=== PATIENT | female | born 2000 | race Two or more races ===

== ENCOUNTER 2024-06-06 18:42 | Observation (INO) | payer MEDICAID, SELFPAY ==
[2024-06-06] VITALS (32 sets, daily range): BP systolic 111–143; BP diastolic 55–74; PULSE 83–105; RESP 18; TEMP 36.8–36.9; O2SAT 98–99; BMI 49.6
[2024-06-06] MEDS: TERBUTALINE SULF INJ 1 MG/ML VIAL 0.25 MG SC (20:31)
[2024-06-06] MEDS: RINGERS LACTATED 1000 ML 1,000 ML 999 ML IV (20:41)
[2024-06-06 21:15] LABS: Collection Type, Urine Clean Catch; RBC,Urine 0 /hpf (0-3); WBC,Urine 0 /hpf (0-5)
[2024-06-06 21:19] LABS: Basophils % (Auto) 0 % (0-2.5); Eosinophils % (Auto) 0 % (0-10); Hematocrit 32.4 % (36.0-46.0); Hemoglobin 10.7 g/dL (12.0-16.0); Immature Granulocytes % (Auto) 1 % (0-0); Lymphocytes # (Auto) 3.2 Thou/mm3 (1.0-4.8); Lymphocytes % (Auto) 26 % (10-50); Mean Corpuscular Volume 82 fL (80-100); Monocytes % (Auto) 8 % (0-12); Neutrophils % (Auto) 65 % (37-80); Nucleated Red Blood Cell % 0 /100 WBC (0); Platelet Count 364 Thou/mm3 (140-440); RDW Standard Deviation 41.9 fL (36.4-46.3); Red Blood Count 3.97 Miln/mm3 (4.00-5.20); White Blood Count 12.3 Thou/mm3 (3.6-11.0)
[2024-06-06 21:34] LABS: Bilirubin,Urine Negative (Negative); Blood,Urine Negative (Negative); Clarity,Urine Clear (Clear/Hazy); Color,Urine Yellow (Lt Yel-Yel); Glucose, Urine Negative (Negative); Ketones,Urine 3+ (Negative); Leukocyte Esterase,Urine Negative (Negative); Nitrite,Urine Negative (Negative); PH,Urine 6.5 (5.0-7.0); Protein,Urine Trace (Neg - Trace); Specific Gravity,Urine 1.018 (1.001-1.035); Squamous Epithelial Cell,Urine 1 /hpf (0-5); Urobilinogen,Urine Negative mg/dL (0.0-1.0)
[2024-06-06] MEDS: RINGERS LACTATED 1000 ML 1,000 ML 100 ML IV (21:45)
[2024-06-06] MEDS: NIFEdipine 10 MG CAPSULE PO (21:52)
[2024-06-06 22:51] LABS: Syphilis Nonreactive (Nonreactive)
[2024-06-07 06:00] VITALS: TEMP 37
[2024-06-07 06:09] VITALS: BP 130/68; PULSE 85
--- NOTE | 2024-06-07 07:09 | ESHP_ITS ---
Documentation for date of: 06/07/24 OB Labor/Induct. HPI History of Present Illness : 2 Term pregnancies: 1 pregnancies: 0 Living children: 0 History of Abortions: Spontaneous and Elective: 0 History of sections: Yes History of : No History of present illness: 24 yo at 35+3 presents with back pain and contractions. c/b: 1) History of CD at 37 weeks 2) GDM 3) Obesity BMI 50 4) Asthma 5) Anemia in Patient states she started having back pain at 10AM and reports having intercourse. Since then still having back pain (lower middle location) and cramping contractions. No LOF, no VB. Normal movement. No incisional pain and no dysuria. History of Present Adequate Care: Yes Review of Systems Review of Systems Narrative Review of Systems: NEgative except noted above Past Medical History Surgical History SURGICAL: Positive Section Meds Home Medications and Allergies Home Medications ?Medication ?Instructions ?Recorded ?Confirmed ?Type vit no.95-ferrous 06/06/24 06/06/24 History fumarate 28 mg-folic acid 800 mcg tablet () Allergies Allergy/AdvReac Type Severity Reaction Status Date / Time No Known Allergies Allergy Verified 04/30/23 08:55 OB Exam Physical Exam Vital signs: Temp Pulse Resp BP Pulse Ox 98.6 F 85 18 130/68 98 06/07/24 06:00 06/07/24 06:09 06/06/24 19:02 06/07/24 06:09 06/06/24 20:51 Narrative: General: NAD RESP: normal work of breathing Abdomen: soft, gravid, non-tender, no rebound or guarding, no incisional pain. Small amount of pain over left ASIS with palpation BACK : no CVA tenderness, mild pain with palpation in mid lower back Extremities: no pain with palpation of calves and no unilateral swelling SVE: unchanged 1cm over serial exams FHT: Moderate variability, normal baseline, variable decel x1 over the course of observation period. With prolonged monitoring, no additional decelerations [place]: irritable q-1-2min -> prolonged monitoring s/p terb/nifedipine and IVF -> irregular/quiet OB Results Labs 06/06/24 20:41 Labs: Short CBC 06/06/24 Range/Units 20:41 WBC 12.3 H (3.6-11.0) Thou/mm3 Hgb 10.7 L (12.0-16.0) g/dL Hct 32.4 L (36.0-46.0) % Plt Count 364 (140-440) Thou/mm3 Urine 06/06/24 Range/Units 21:00 Urine Color Yellow (Lt Yel-Yel) Urine Clarity Clear (Clear/Hazy) Urine pH 6.5 (5.0-7.0) Ur Specific [place] 1.018 (1.001-1.035) Urine Protein Trace (Neg - Trace) Urine Glucose (UA) Negative (Negative) Impressions Impression: 24 yo at 35+3 presents with back pain and contractions, admitted for observation in the setting of prior section. After conservative management with IVF, her contractions improved with no change on serial SVE and no signs of uterine rupture on exam or clinical findings and FHT. Patient discharged home in stable condition with follow-up with OBGYN tomorrow. OB Assessment & Plan Assessment and Plan (1) Type 2 diabetes mellitus with insulin therapy: Status: Acute (2) contractions: Status: Acute (3) History of delivery: Status: Acute (4) Obesity: Status: Acute (5) Asthma: Status: Acute (6) Anemia in preg-unspec: Status: Acute Additional Plan Additional Plan Comment: 24 yo at 35+3 presents with back pain and contractions, not in labor. contractions, no signs of labor or uterine rupture - admitted to obs, s/p IVF, terbutatline and nifedipine with improvement of contractions, still having mild cramping. Exam reassuring with no signs of uterine rupture on exam, FHT reactive. No ALPS for GDM vs T2DM - Discussed strict return precautions, will need to follow-up with primary OBGYN for timing of RLTCS in the setting of obesity, DM, prior CD, and contractions - UA without signs of UTI, no sign of pyelonephritis on exam Elevated BP x1 on admission: - no prolonged elevated blood pressures, trace protein on UA - if she continues to have elevated BP in clinic, would recommend workup for PEC, no signs or symptoms on admission Discharged home after observation overnight for labor, no signs of labor on monitoring and serial exams. PTL precautions reviewed PEC precautions reviewed OBGYN clinic appointment tomorrow, patient aware of importance of keeping appointment.
[2024-06-07 07:39] VITALS: BP 143/81; PULSE 84; RESP 18; TEMP 36.8
[2024-06-07 09:14] LABS: Basophils % (Auto) 0 % (0-2.5); Eosinophils % (Auto) 0 % (0-10); Hematocrit 31.1 % (36.0-46.0); Hemoglobin 10.2 g/dL (12.0-16.0); Immature Granulocytes % (Auto) 1 % (0-0); Immature Granulocytes Auto 0.09 Thou/mm3 (0.00-0.00); Lymphocytes # (Auto) 2.5 Thou/mm3 (1.0-4.8); Lymphocytes % (Auto) 24 % (10-50); Mean Corpuscular HGB Conc 32.8 g/dl (31.0-37.0); Mean Corpuscular Volume 82 fL (80-100); Monocytes # (Auto) 0.7 Thou/mm3 (0.0-0.8); Monocytes % (Auto) 7 % (0-12); Neutrophils # (Auto) 6.8 Thou/mm3 (1.8-7.7); Neutrophils % (Auto) 67 % (37-80); Nucleated Red Blood Cell % 0 /100 WBC (0); Platelet Count 326 Thou/mm3 (140-440); RDW Standard Deviation 42.8 fL (36.4-46.3); Red Blood Count 3.78 Miln/mm3 (4.00-5.20); White Blood Count 10.1 Thou/mm3 (3.6-11.0)
[2024-06-07 09:34] LABS: Alanine Aminotransferase 20 U/L (10-49); Albumin, Serum 3.9 gm/dL (3.5-5.0); Albumin/Globulin Ratio 1.5 (1.2-2.2); Alkaline Phosphatase 116 U/L (46-116); Anion Gap 12 (7-16); Aspartate Amino Transferase 16 U/L (0-34); BUN/Creatinine Ratio 10 Ratio (12-20); Bilirubin,Total 0.8 mg/dL (0.3-1.2); Blood Urea Nitrogen 5 mg/dL (9-23); Calcium 9.3 mg/dL (8.3-10.6); Calcium (Corrected) 9.4 mg/dL (8.5-10.1); Carbon Dioxide 20.4 mMol/L (20.0-31.0); Chloride 105 mMol/L (98-107); Creatinine (Component) 0.5 mg/dL (0.6-1.3); Estimated Creatinine Clearance 210.9 mL/min (>60); Globulin 2.6 gm/dL (2.3-3.5); Glucose 81 mg/dL (74-106); Osmolality,Calculated 270 (275-295); Potassium 3.8 mMol/L (3.4-5.1); Sodium 137 mMol/L (136-145); Total Protein 6.5 gm/dL (5.7-8.2); Uric Acid 6.4 mg/dL (3.1-7.8); eGFR > 60 See Note
[2024-06-07 09:55] LABS: Collection Type, Urine Clean Catch
[2024-06-07 10:02] LABS: Bilirubin,Urine Negative (Negative); Blood,Urine Negative (Negative); Clarity,Urine Clear (Clear/Hazy); Color,Urine Yellow (Lt Yel-Yel); Glucose, Urine Negative (Negative); Ketones,Urine 4+ (Negative); Leukocyte Esterase,Urine Negative (Negative); Nitrite,Urine Negative (Negative); PH,Urine 6.5 (5.0-7.0); Protein,Urine Negative (Neg - Trace); RBC,Urine 3 /hpf (0-3); Specific Gravity,Urine 1.017 (1.001-1.035); Squamous Epithelial Cell,Urine 5 /hpf (0-5); WBC,Urine 1 /hpf (0-5)
[2024-06-07 10:12] LABS: Creatinine,Random Urine 79 mg/dL (30-125); Protein Total, Random Urine 26 mg/dL (1-14)
[2024-06-07 10:32] VITALS: BP 123/65; PULSE 90; RESP 18; TEMP 36.8
--- NOTE | 2024-06-07 11:09 | PC.NURSE ---
Patient discharged home independently, vitals wnl. Provider notified of lab results. Patient given discharge education including labor precautions, preparing for c/s, kick counts and preeclampsia symptoms. Patient instructed to follow up with provider at next scheduled appt tomorrow on 06/08 and notified of scheduled c/s on 06/17. Patient verbalizes understanding, all questions answered and encouraged.
== END 2024-06-07 11:05 | disposition home or self-care (01) ==
PROVIDERS: Admitting Provider Obstetrics & Gynecology; PCP Family Medicine; Visit Provider Obstetrics & Gynecology
DX: O47.03 False labor before 37 completed weeks of gestation, third trimester (principal); O24.414 Gestational diabetes mellitus in pregnancy, insulin controlled; O99.213 Obesity complicating pregnancy, third trimester; E66.9 Obesity, unspecified; O99.513 Diseases of the respiratory system complicating pregnancy, third trimester; J45.909 Unspecified asthma, uncomplicated; O99.013 Anemia complicating pregnancy, third trimester; D64.9 Anemia, unspecified; O26.893 Other specified pregnancy related conditions, third trimester; M54.50 Low back pain, unspecified; Z3A.35 35 weeks gestation of pregnancy
CPT/HCPCS: 36415; 59899; 80053; 81001; 82570; 84156; 84550; 85025; 86780; 86850; 86900; 86901; 87086; 96372; J3105; J7120; A9270

== ENCOUNTER 2024-06-10 10:37 | Outpatient (CLI) | payer MEDICAID, SELFPAY ==
[2024-06-10 10:40] VITALS: BP 124/60; PULSE 97; RESP 16; TEMP 36.8
[2024-06-10 11:07] VITALS: BP 124/60; PULSE 97
[2024-06-10 11:11] VITALS: BMI 49.7
[2024-06-10 11:22] VITALS: BP 126/58; PULSE 88
== END 2024-06-10 13:14 | disposition home or self-care (01) ==
LOC: S4S1 10:38 → S4SX 10:38
PROVIDERS: Referring Provider Obstetrics & Gynecology; Visit Provider Obstetrics & Gynecology
DX: O26.893 Other specified pregnancy related conditions, third trimester (principal); R03.0 Elevated blood-pressure reading, without diagnosis of hypertension; Z3A.36 36 weeks gestation of pregnancy
CPT/HCPCS: 59025

== ENCOUNTER 2024-06-14 11:23 | Outpatient (CLI) | payer MEDICAID, SELFPAY ==
[2024-06-14 11:25] VITALS: BP 136/70; PULSE 88; RESP 18; RESP 99; TEMP 36.7
[2024-06-14 11:32] VITALS: BP 136/70; PULSE 88
[2024-06-14 12:12] VITALS: BMI 49.8
--- NOTE | 2024-06-14 13:01 | XR_ITS ---
Examination: Biophysical profile, ultrasound Date and time of exam: June 14, 2024 1333 hours INDICATIONS: Indeterminate NST today, history tachycardia Technique: Multiple transabdominal sonographic images of the pelvis abdomen obtained. Attention is directed to the breathing movement, gross body movement, amniotic fluid volume and tone. Findings: Amniotic fluid index 9.6 cm Total biophysical profile is 8 of 8. breathing movement is 2. Gross body movement is 2. tone is 2. Qualitative amniotic fluid volume is 2 Impression: Biophysical profile is 8 of 8.
== END 2024-06-14 14:50 | disposition home or self-care (01) ==
LOC: S4S1 11:24 → S4SX 11:24
PROVIDERS: Referring Provider Obstetrics & Gynecology; Visit Provider Obstetrics & Gynecology
DX: Z34.83 Encounter for supervision of other normal pregnancy, third trimester (principal); Z36.9 Encounter for antenatal screening, unspecified; Z3A.36 36 weeks gestation of pregnancy
CPT/HCPCS: 59025; 76819

== ENCOUNTER 2024-06-17 10:11 | Inpatient (IN) | payer MEDICAID, SELFPAY ==
[2024-06-17] VITALS (22 sets, daily range): BP systolic 105–137; BP diastolic 60–83; PULSE 60–96; RESP 13–24; TEMP 36.3–36.7; O2SAT 97–100; BMI 54.9
[2024-06-17] MEDS: RINGERS LACTATED 1000 ML 1,000 ML 999 ML IV (10:00)
[2024-06-17] MEDS: RINGERS LACTATED 1000 ML 1,000 ML 100 ML IV (11:05)
[2024-06-17] MEDS: FAMOTIDINE INJ 10 MG/ML VIAL 2 ML 20 MG IV (11:07)
[2024-06-17] MEDS: CITRIC ACID/SODIUM CITR 15 ML UDC (BICITRA) 30 ML PO (11:07)
[2024-06-17] MEDS: ceFAZolin/D5W 2 GM IV 2 GM/100 ML BAG IV (11:07)
[2024-06-17 11:15] LABS: Basophils % (Auto) 0 % (0-2.5); Eosinophils % (Auto) 0 % (0-10); Hematocrit 34.5 % (36.0-46.0); Hemoglobin 11.3 g/dL (12.0-16.0); Immature Granulocytes % (Auto) 1 % (0-0); Immature Granulocytes Auto 0.08 Thou/mm3 (0.00-0.00); Lymphocytes % (Auto) 16 % (10-50); Mean Corpuscular HGB Conc 32.8 g/dl (31.0-37.0); Mean Corpuscular Hemoglobin 26.3 pg (25.0-35.0); Mean Corpuscular Volume 80 fL (80-100); Monocytes # (Auto) 0.7 Thou/mm3 (0.0-0.8); Monocytes % (Auto) 6 % (0-12); Neutrophils # (Auto) 9.4 Thou/mm3 (1.8-7.7); Neutrophils % (Auto) 77 % (37-80); Nucleated Red Blood Cell % 0 /100 WBC (0); Platelet Count 419 Thou/mm3 (140-440); RDW Standard Deviation 41.6 fL (36.4-46.3); White Blood Count 12.3 Thou/mm3 (3.6-11.0)
[2024-06-17 11:56] LABS: Syphilis Nonreactive (Nonreactive)
--- NOTE | 2024-06-17 12:42 | PD.LDHP ---
Documentation for date of: 06/17/24 OB Labor/Induct. HPI History of Present Illness : 2 Term pregnancies: 1 pregnancies: 0 Living children: 0 History of Abortions: Spontaneous and Elective: 0 History of sections: Yes History of : No History of present illness: 24-year-old 2 para 1-0-0-1 at 37 weeks and 0 days for second trimester ultrasound is admitted for repeat low-transverse for gestational hypertension. Patient was admitted for prolonged observation 2 weeks ago where gestational hypertension was discovered patient denies any headache, blurry vision, shortness of breath History of Present Dating criteria: LMP confirmed by 2nd trimester US Adequate Care: Yes Abnormal ultrasound findings: Estimated weight 3600 Labs Labs: Negative: Hepatitis B, HIV, Chlamydia and Gonorrhea and Unknown: Group Beta Strep Past Medical History Surgical History SURGICAL: Positive Section Meds Home Medications and Allergies Home Medications ?Medication ?Instructions ?Recorded ?Confirmed ?Type vit no.95-ferrous 1 tab PO DAILY 06/06/24 06/17/24 History fumarate 28 mg-folic acid 800 mcg tablet () Allergies Allergy/AdvReac Type Severity Reaction Status Date / Time No Known Allergies Allergy Verified 06/17/24 12:04 OB Exam Physical Exam Vital signs: Pulse BP Pulse Ox 96 127/64 98 06/17/24 10:31 06/17/24 10:31 06/17/24 12:42 Constitutional Constitutional: no acute distress Routine HEENT Exam Head: Present normocephalic and atraumatic Eye: Present EOMI and PERRL ENT: Present mucous membranes moist Routine Neck Exam Neck: Present supple and trachea midline Routine Cardiovascular Exam Cardiovascular: Present RRR Routine Abdominal Exam Abdominal: Present soft and normoactive bowel sounds Detailed Labor and Delivery Exam Dilation (cm): Closed Comments: Category 1 heart tone Routine Extremities Exam Extremities: Present full ROM Routine Skin Exam Skin: Present intact, dry and warm Routine Neurological Exam Neurological: Present alert, oriented X3 and CN II-XII intact Routine Psychiatric Exam Psychiatric: Present normal affect and normal thought process OB Results Labs 06/17/24 10:50 Labs: Short CBC 06/17/24 Range/Units 10:50 WBC 12.3 H (3.6-11.0) Thou/mm3 Hgb 11.3 L (12.0-16.0) g/dL Hct 34.5 L (36.0-46.0) % Plt Count 419 D (140-440) Thou/mm3 Impressions Impression: 24-year-old 2 para 1-0-0-1 at 37 weeks/s trimester ultrasound admitted for repeat low-transverse for gestational hypertension Maternal obesity BMI 54 NIPT normal Anatomy normal Hemoglobin 11.3 OB Assessment & Plan Additional Plan Additional Plan Comment: Repeat low-transverse Antibiotic prophylaxis DVT prophylax
[2024-06-17 13:10] LABS: Amphetamine/Methamp Scrn,U Negative (Negative); Barbiturate Screen,Urine Negative (Negative); Benzodiazepines Screen,Urine Negative (Negative); Benzoylecgonine Screen, Ur Negative (Negative); Fentanyl Screen,Urine Negative (Negative); Opiate Screen,Urine Negative (Negative); THC Screen,Urine Positive (Negative)
[2024-06-17] MEDS: OXYTOCIN in NS 20 units 20 UNIT/1,000 ML BAG 125 UNIT IV (14:15)
[2024-06-17] MEDS: ONDANSETRON INJ 2 MG/ML INJ 2 ML 4 MG IV (16:04)
[2024-06-17 18:39] LABS: Basophils # (Auto) 0.1 Thou/mm3 (0.0-0.2); Basophils % (Auto) 0 % (0-2.5); Eosinophils % (Auto) 0 % (0-10); Hematocrit 34.1 % (36.0-46.0); Hemoglobin 11.1 g/dL (12.0-16.0); Immature Granulocytes % (Auto) 1 % (0-0); Immature Granulocytes Auto 0.09 Thou/mm3 (0.00-0.00); Lymphocytes # (Auto) 2.1 Thou/mm3 (1.0-4.8); Lymphocytes % (Auto) 12 % (10-50); Mean Corpuscular HGB Conc 32.6 g/dl (31.0-37.0); Mean Corpuscular Hemoglobin 26.4 pg (25.0-35.0); Mean Corpuscular Volume 81 fL (80-100); Monocytes # (Auto) 1.1 Thou/mm3 (0.0-0.8); Monocytes % (Auto) 6 % (0-12); Neutrophils # (Auto) 14.4 Thou/mm3 (1.8-7.7); Neutrophils % (Auto) 81 % (37-80); Nucleated Red Blood Cell % 0 /100 WBC (0); Platelet Count 376 Thou/mm3 (140-440); RDW Standard Deviation 41.8 fL (36.4-46.3); Red Blood Count 4.21 Miln/mm3 (4.00-5.20); White Blood Count 17.8 Thou/mm3 (3.6-11.0)
--- NOTE | 2024-06-17 21:35 | ESOP_ITS ---
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 Identity was confirmed by double identifiers and she was placed on the operating table.The abdomen and perineum were prepped in the usual sterile fashion and a Barnard catheter was placed to continuous drainage.? Sterile drapes were applied.??A Pfannenstiel skin incision was made with a scalpel and carried to the subcutaneous fat up to the rectus fascia.? The rectus fascia was incised on either side of the midline and the incisions were extended bilaterally.? The fascia was gently dissected off the ventral surface of the rectus muscle both superiorly and inferiorly. Carefully a peritioneal window craeted hysterotomy incision made and extended bluntly with finger. Rupture of membranes revealed clear fluid. The baby was found in transverse lie with head to the right, delivered via vertex. The umbilical cord , was doubly clamped, divided and the was handed over to the waiting team.? placenta delivered by co ntrolled cord traction . The interior of the uterus was now thorougly cleaned of all blood and debris and membranes.? Next the? hysterotomy was closed using 0 vicryl suture in double layers. Once the repair was completed the hysterotomy was inspected, was noted to be adequately hemostatic . Muscle oozing stopped by bovie. The rectus fascia was repaired using Vicry 0 in a running fashion.? The subcutaneous layer was now, approximated with 3-0 vicryl in double layers.? All bleeding points were cauterized using the Bovie.?The skin was closed using 4-0 Monocryl in a subcuticular fashion.? The skin was cleaned and a sterile dressing was applied. The patient was now undraped, the abdomen and back were thoroughly cleaned and she was now transferred to the recovery room in a stable Estimated blood loss (ml): 400 Surgical staff Operation Date: 06/17/24 12:45 Case Staff Anesthesiologist: Arthur Rubi RN First Assistant: Eveline Luevano Diagnosis Problem List Completed Was Problem List Reviewed/Reconciled?: Yes
--- NOTE | 2024-06-17 21:39 | PD.LDDELS ---
Data ([facility]) Data Hx Section: Yes : 2 Para: 1 Term: 1 : 0 : 0 Delivery Data ([facility]) Labor Data ROM Date: 06/17/24 ROM Time: 13:24 Rupture Type: AROM Delivery Data Labor Onset Stage 1 Date: 06/17/24 Labor Onset Stage 1 Time: 13:26 Labor Onset Stage 2 Date: 06/17/24 Labor Onset Stage 2 Time: 13:26 Delivery Date: 06/17/24 Delivery Time: 13: Gestational age (weeks): 37 Placenta Delivery Date: 06/17/24 Placenta Delivery Time: 13:27 Delivered by: Pascual Mathews Delivery nurse: Maren Mittal Other staff at delivery: Nursery Nurse Other staff at delivery: Ivania Pereyra Delivery Method Delivery: Delivery Type: Repeat Anesthesia Type Primary Anesthesia: Spinal Placenta Placenta Delivery: Manual Cord Sample: Cord Blood Obtained EBL Estimated blood loss (ml): 300 Umbilical Cord Umbilical Vessels: 3 Nuchal Cord: None Body Cord: None Data ([facility]) Data Infant Gender: Female Identification Band Number: [id number] Infant Weight Grams: 3775 1 Minute Total: 9 5 Minute Total: 9
[2024-06-18 01:12] VITALS: BP 122/73; PULSE 85; RESP 18; TEMP 36.8; O2SAT 95
--- NOTE | 2024-06-18 07:43 | PD.LDPPPRG ---
Subjective Subjective Interval history: Patient doing well denies any fever, vaginal bleeding, dizziness, shortness of breath. Has been tolerating diet without nausea vomiting. Has not yet passed gas Exam Vital Signs Temp Pulse Resp BP Pulse Ox O2 Del Method 98.3 F 85 18 122/73 95 Room Air 06/18/24 01:12 06/18/24 01:12 06/18/24 01:12 06/18/24 01:12 06/18/24 01:12 06/18/24 01:12 Constitutional Constitutional: no acute distress Routine HEENT Exam Head: Present normocephalic and atraumatic Eye: Present EOMI and PERRL ENT: Present mucous membranes moist Routine Neck Exam Neck: Present supple and trachea midline Routine Respiratory Exam Respiratory: Present chest non-tender, lungs clear, normal breath sounds and no resp distress Routine Cardiovascular Exam Cardiovascular: Present RRR Routine Abdominal Exam Abdominal: Present soft and normoactive bowel sounds Routine Extremities Exam Extremities: Present full ROM Routine Skin Exam Skin: Present intact, dry and warm Routine Neurological Exam Neurological: Present alert, oriented X3 and CN II-XII intact Routine Psychiatric Exam Psychiatric: Present normal affect and normal thought process Objective Labs 06/17/24 18:30 Labs: Laboratory Results - last 24 hr 06/17/24 06/17/24 06/17/24 10:50 12:32 18:30 WBC 12.3 H 17.8 H D RBC 4.30 4.21 Hgb 11.3 L 11.1 L Hct 34.5 L 34.1 L MCV 80 81 MCH 26.3 26.4 MCHC 32.8 32.6 RDW Std Deviation 41.6 41.8 Plt Count 419 D 376 D Neut % (Auto) 77 81 H Lymph % (Auto) 16 12 [place] % (Auto) 6 6 Eos % (Auto) 0 0 Baso % (Auto) 0 0 Neut # (Auto) 9.4 H 14.4 H Lymph # (Auto) 2.0 2.1 [place] # (Auto) 0.7 1.1 H Eos # (Auto) 0.0 0.0 Baso # (Auto) 0.0 0.1 Immature Gran # (Auto) 0.08 H 0.09 H Absolute Nucleated RBC 0.00 0.00 Immature Gran % 1 H 1 H Nucleated RBC % 0 0 Urine Opiates Screen Negative Urine Fentanyl Screen Negative Ur Barbiturates Screen Negative U Amphetamin/Meth Scrn Negative U Benzodiazepines Scrn Negative U Cocaine Metab Screen Negative U Marijuana (THC) Screen Positive A Syphilis Serology Nonreactive Blood Type A Positive Antibody Screen NEGATIVE Blood Bank Wristband ID Yes Assessment & Plan Assessment Comment Assessment comment: 24-year-old s/p repeat low-transverse , postop day 1 Hemoglobin 11.3-11.1 appropriate drop Vital signs are stable Meeting all postop milestones excepting passing gas Plan Comment Plan Comment: Continue postop care Anticipate discharge tomorrow Time Spent With Patient Time: Total time spent is greater than 50% in coordination of care (as documented) at patient's floor/unit and/or counseling patient:
[2024-06-18 08:00] VITALS: BP 139/88; PULSE 94; RESP 18; TEMP 36.3; O2SAT 95
--- NOTE | 2024-06-18 12:20 | ESDS_ITS ---
DS: Providers Provider Date of admission: 06/17/24 10:11 Primary care physician: Alin Dockery MD Admitting Provider: Pascual Mathews MD Attending Provider on Admission: Pascual Mathews MD Consults: 06/17/24 12:45 Referral Routine Comment: Attending Provider on DC: Philly Uriostegui MD Discharging Provider: Philly Uriostegui MD DS: Diagnosis Discharge Diagnosis (1) History of delivery: Status: Acute (2) Obesity compl pregn//puerperp: Status: Acute (3) Gestational hypertension: Status: Acute Problem List Completed Was Problem List Reviewed/Reconciled?: Yes Summary/Hosp Course Brief History: 24-year-old 2 para 1-0-0-1 at 37 weeks and 0 days for second trimester ultrasound is admitted for repeat low-transverse for gestational hypertension. Patient was admitted for prolonged observation 2 weeks ago where gestational hypertension was discovered patient denies any headache, blurry vision, shortness of breath. She is now POD 1 s/p uncomplicated RLTCS. She has had an uncomplicated post- operative course, meeting all milestones and strongly desires discharge home at 24 hours rather than 48 hours because baby is transferring to another hospital for treatment of pneumothorax. Patient does not want to stay another night and is adamant regarding discharge. She is ambulating without lightheadedness, tolerating regular diet no n/v, spontaneously voiding without issue. She has no chest pain or shortness of breath. No fevers or chills. Denies any pain. Vitals normal, benign exam. Hemodymanically stable with no evidence of infection. Post- op Hgb 11.1. Peripartum Data Procedures: Procedures Operation Date: 06/17/24 12:45 Actual Procedure Side Surgeon p in OB Pascual Mathews MD Status at Discharge Functional status at discharge: independent ambulation Overall status at discharge: patient is back to baseline Time Spent with Patient Time attestation: Total time spent providing and/or coordinating discharge services: Exam Vital Signs Temp Pulse Resp BP Pulse Ox O2 Del Method 97.4 F 94 18 139/88 H 95 Room Air 06/18/24 08:00 06/18/24 08:00 06/18/24 08:00 06/18/24 08:00 06/18/24 08:00 06/18/24 08:00 Narrative Exam General: well developed, well nourished, no acute distress, conversant Cardiac: normal heart rate Lungs: breathing without distress Abdomen: soft, post-gravid, non-tender, no rebound or guarding, overlying dress ing removed, pfannenstiel incision covered by dry/clean/intact prineo bandage. Incision well reapproximated. No erythema, drainage or induration. Fundus firm at u-2cm. Extremities: no pain with palpation of calves, trace edema of BLE Discharge Plan Plan Patient Disposition: HOME (Self Care) Patient condition on transfer: Stable Prescriptions/Referrals Prescriptions/Med Rec: New ibuprofen 800 mg tablet 800 mg PO Q8H PRN (Reason: See Comments) 10 Days Qty: 30 0RF hydrocodone-acetaminophen 5-325 mg Tablet 1 tab PO Q6HR MDD 4 tablets PRN (Reason: Patient rated pain 9 to 10) 10 Days Qty: 12 0RF polyethylene glycol 3350 [ClearLax] 17 gram powder in packet 17 g PO QDAY Qty: 14 0RF Continued PNV cmb#95-ferrous fumarate-FA [] 28 mg iron- 800 mcg tablet 1 tab PO DAILY Referrals: Alin Dockery MD [Primary Care Provider] - Patient/Caregiver Discharge Instructions Discharge Activity: activity as tolerated and other Other Discharge Activity Instructions:: Vaginal rest, no heavy lifting greater than 10 pounds for 6 weeks. Do not submerge incision. Keep incision clean and dry. No driving while taking narcotic Other Discharge Diet Instructions: Regular diet Education Materials: Understanding Blues, C Section Dc, and Delayed Milk Production Print Language: Pashto Activity Restrictions/Additional Instructions: Follow up in 1 week for incision check and blood pressure check, call clinic to make appointment. Stand Alone Forms: [facility] Info., Patient Portal Info Letter Discharge Order Discharge Orders: Discharge (Routine); Ordered 06/18/24 Ordered By: Philly Uriostegui Planned Discharge Date 06/18/24 (3) Gestational hypertension Qualifiers: Trimester: third trimester Qualified Code(s): O13.3 - Gestational [- induced] hypertension without significant proteinuria, third trimester
[2024-06-18 12:30] VITALS: BP 140/92; PULSE 90; RESP 18; TEMP 36.6; O2SAT 95
--- NOTE | 2024-06-18 14:36 | PC.SS ---
UPKEEP WORKER attempted bedside contact with the patient to address nursing referral. Patient has discharged. Patient's infant had been transferred to [facility].
== END 2024-06-18 12:40 | disposition home or self-care (01) | DRG 540 ==
LOC: S4SX 11:02 → S4NX 12:56
PROVIDERS: Admitting Provider Student in an Organized Health Care Education/Training Program; PCP Family Medicine; Visit Provider Student in an Organized Health Care Education/Training Program
PROC: 10D00Z1 Extraction of Products of Conception, Low, Open Approach (ICD-10-PCS; CPT 59514; principal; 2024-06-17 12:30)
DX: O13.4 Gestational [pregnancy-induced] hypertension without significant proteinuria, complicating childbirth (principal); Z37.0 Single live birth; Z3A.37 37 weeks gestation of pregnancy; O99.214 Obesity complicating childbirth; O34.211 Maternal care for low transverse scar from previous cesarean delivery; O32.2XX0 Maternal care for transverse and oblique lie, not applicable or unspecified
CPT/HCPCS: 36415; 80307; 85025; 86780; 86850; 86900; 86901; A4649; J0689; J2274; J2371; J2405; J2590; J3490; J7120; A9270; J2270